=== PATIENT | female | born 1965 | race Native Hawaiian/Other Pacific Islander ===

== ENCOUNTER 2016-12-19 10:17 | Outpatient (CLI) | payer OTHER | END 2016-12-19 12:20 | disposition home or self-care (01) | LOC: MAMMO 10:17 | DX: Z12.31 Encounter for screening mammogram for malignant neoplasm of breast (principal); Z13.820 Encounter for screening for osteoporosis; M85.89 Other specified disorders of bone density and structure, multiple sites | CPT/HCPCS: G0202-TC ==

== ENCOUNTER 2018-04-01 10:50 | Outpatient (CLI) | payer OTHER | END 2018-04-01 22:25 | disposition home or self-care (01) | LOC: MAMMO 10:50 | DX: Z12.31 Encounter for screening mammogram for malignant neoplasm of breast (principal) ==

== ENCOUNTER 2019-06-04 14:13 | Outpatient (CLI) | payer OTHER ==
[2019-06-04 15:02] LABS: PLATELET COUNT 281 K/uL (152-353)
== END 2019-06-04 23:07 | disposition home or self-care (01) ==
LOC: LAB 14:13
PROVIDERS: Physician Assistant
DX: E78.00 Pure hypercholesterolemia, unspecified (principal); I10 Essential (primary) hypertension; E55.9 Vitamin D deficiency, unspecified
CPT/HCPCS: 80053; 80061; 84439; 84443; 85027

== ENCOUNTER 2019-06-22 10:57 | Outpatient (CLI) | payer OTHER | END 2019-06-22 19:07 | disposition home or self-care (01) | LOC: MAMMO 10:57 | DX: Z12.31 Encounter for screening mammogram for malignant neoplasm of breast (principal) ==

== ENCOUNTER 2020-01-22 11:26 | Outpatient (CLI) | payer OTHER ==
[2020-01-22 11:54] LABS: PLATELET COUNT 233 K/uL (152-353)
[2020-01-22 18:11] LABS: POTASSIUM 3.7 mmol/L (3.6-5.2)
== END 2020-01-22 23:57 | disposition home or self-care (01) ==
LOC: LAB 11:26
PROVIDERS: Internal Medicine
DX: I10 Essential (primary) hypertension (principal)
CPT/HCPCS: 80053; 80061; 81000; 84439; 84443; 85027

== ENCOUNTER 2020-07-01 13:32 | Outpatient (CLI) | payer OTHER | END 2020-07-01 19:39 | disposition home or self-care (01) | LOC: MAMMO 13:32 | PROVIDERS: ATTEND Internal Medicine | DX: Z12.31 Encounter for screening mammogram for malignant neoplasm of breast (principal); Z13.820 Encounter for screening for osteoporosis ==

== ENCOUNTER 2021-01-13 12:11 | Outpatient (CLI) | payer OTHER | END 2021-01-13 19:33 | disposition home or self-care (01) | LOC: LAB 12:11 | PROVIDERS: ATTEND Internal Medicine | DX: Z20.822 Contact with and (suspected) exposure to COVID-19 (principal) | CPT/HCPCS: 87635; G2023; U0003 ==

== ENCOUNTER 2022-06-06 14:21 | Outpatient (CLI) | payer OTHER | END 2022-06-06 19:57 | disposition home or self-care (01) | LOC: MAMMO 14:21 | PROVIDERS: ATTEND Internal Medicine | DX: Z12.31 Encounter for screening mammogram for malignant neoplasm of breast (principal) ==

== ENCOUNTER 2023-06-10 12:57 | Outpatient (CLI) | payer OTHER | END 2023-06-10 19:44 | disposition home or self-care (01) | LOC: MAMMO 12:57 | PROVIDERS: ATTEND Internal Medicine | DX: Z12.31 Encounter for screening mammogram for malignant neoplasm of breast (principal); Z78.0 Asymptomatic menopausal state ==